=== PATIENT | female | born 1950 | race Caucasian/White ===

== ENCOUNTER 2019-11-28 13:53 | Observation (INO) | payer MEDICARE ==
--- NOTE | 2019-11-28 14:21 | ED ---
HPI Cardiac - HPI Summary HPI Summary: 69 year old F presenting to [facility] accompanied by EMS complains of an episode of lightheadedness, numbness and tingling in the left arm and leg, and left sided chest pressure earlier today 11/28/2019. The numbness and tingling in her arm and leg as well as the chest pressure have since resolved. There is some current left handed numbness. Patient reports the episode lasted half an hour. Patient denies chest pain currently. She took aspirin and blood pressure medication during the episode and was given NTG by EMS which she said helped. The patient rates the pain 0/10 in severity. Symptoms aggravated by nothing. Symptoms alleviated by NTG. No recent stress test. No prior LA. No hx DVT/PE. - History of Current Complaint Stated Complaint: CHEST PAIN PER EMS Time Seen by Provider: 11/28/19 14:05 Hx Obtained From: Patient Onset/Duration: Started Hours Ago, Resolved Pain Intensity: 0 Pain Scale Used: 0-10 Numeric Aggravating Factor(s): Nothing Alleviating Factor(s): NTG 123 Associated Signs and Symptoms: Positive: Numbness - in left hand currently. Numbness in left arm and lef have since resolved., Lightheadedness - resolved. Negative: Chest Pain - Chest pressure - Allergy/Home Medications Allergies/Adverse Reactions: Allergies Allergy/AdvReac Type Severity Reaction Status Date / Time No Known Allergies Allergy Unknown See Comment Verified 11/28/19 16:06 Home Medications: Home Medications Omeprazole CAP(NF) [PriLOSEC CAP(NF)] 10 mg PO DAILY PRN 11/28/19 [History Confirmed 11/28/19] PMH/Surg Hx/FS Hx/Imm Hx Cardiovascular History: Reports: Hx Angina Denies: Hx Myocardial Infarction Sensory History: Denies: Hx Legally Blind - Family History Known Family History: Positive: Cardiac Disease - mother had LA - Social History Hx Substance Use: No Hx Tobacco Use: No Review of Systems Negative: Chest Pain - chest pressure Neurological/Mental Status: Other - lightheadedness Positive: Numbness - in left hand. Numbness in left arm and leg since resolved. All Other Systems Reviewed And Are Negative: Yes Physical Exam - Summary Physical Exam Summary: Constitutional: Well-developed, Well-nourished, Alert. (-) Distressed Skin: Warm, Dry HENT: Normocephalic; Atraumatic Eyes: Conjunctiva normal Neck: Musculoskeletal ROM normal neck. (-) JVD, (-) Stridor, (-) Nuchal rigidity Cardio: Rhythm regular, rate normal, Heart sounds normal; Intact distal pulses; Radial pulses are 2+ and symmetric. (-) Murmur Pulmonary/Chest wall: Effort normal. (-) Respiratory distress, (-) Wheezes, (-) Rales Abd: Soft, (-) tenderness, (-) Distension, (-) Guarding, (-) Rebound Musculoskeletal: (-) Edema Lymph: (-) Cervical adenopathy Neuro: Alert, Oriented x3, SILT aside from L hand, strength 5/5 BUE/BLE. Psych: Mood and affect Normal Triage Information Reviewed: Yes Vital Signs Reviewed: Yes Procedures - Sedation Patient Received Moderate/Deep Sedation with Procedure: No Diagnostics - Laboratory Result Diagrams: 11/28/19 14:32 11/28/19 14:32 Lab Statement: Any lab studies that have been ordered have been reviewed, and results considered in the medical decision making process. - Radiology CXR Radiology Interpretation Completed By: Radiologist Summary of Radiographic Findings: IMPRESSION: No active cardiopulmonary disease is identified. No pneumothorax is noted. has reviewed this report. - EKG 1409 Cardiac Rate: NL EKG Rhythm: Sinus Rhythm Summary of EKG Findings: An EKG at 1409 reveals sinus rhythm at a rate of 95 BPM with T wave flattening in V3. ED physician has reviewed and interpretred this report. Disposition - Course Course Of Treatment: 69 y/o F w hx possible HLD p/w episode CP and paresthesias. Chest Pain DDX: The patient is well appearing, with stable vitals. No neuro symptoms at this time aside from mild L sided arm arm paresthesias. Given the patient's clinical presentation, highest on differential is atypical CP vs ACS. Initial troponin negative. Heart score 4: moderate risk. Admit to medicine for CP r/o. Although less likely, differential also includes the following: --Pneumothorax: Equal breath sounds, story inconsistent since gradual onset of symptoms. CXR shows no evidence of pneumothorax. Unlikely. --Cardiac tamponade: The history and physical are not concerning for tamponade. No Pulsus Paradoxus, no tachypnea. Unlikely. -- Mediastinitis or esophageal rupture: The history is not consistent, as the patient has had no recent history of significant wretching, instrumentation, or mediastinal surgeries. Unlikely. --Aortic dissection: The patient does not describe the classical tearing chest pain radiating into the back, and the CXR does not show mediastinal widening or other signs of aortic dissection. Unlikely. --PE: Vitals wnl (not hypoxic, tachycardic or tachypneic) - Diagnoses Provider Diagnoses: Chest pain - Physician Notifications Discussed Care Of Patient With: Sanjeev Jack - admit Time Discussed With Above Provider: 16:14 Instructed by Provider To: Admit As Inpatient Discharge ED - Sign-Out/Discharge Documenting (check all that apply): Patient Departure - admit - Discharge Plan Condition: Stable Disposition: ADMITTED TO [facility] - Billing Disposition and Condition Condition: STABLE Disposition: Admitted to [facility] - Attestation Statements Document Initiated by Rioe: Yes Documenting Scribe: Janes Manning Provider For Whom Bogdanibe is Documenting (Include Credential): Dr.Caelyn Walter Connell MD Scribe Attestation: Janes Mata scribed for Dr.Caelyn Walter Connell MD on 11/30/19 at 0720. Scribe Documentation Reviewed: Yes Provider Attestation: The documentation as recorded by the Janes borges accurately reflects the service I personally performed and the decisions made by me, Dr.Caelyn Walter Connell MD Status of Scribe Document: Viewed
[2019-11-28 14:40] LABS: ABS Basophils 0.1 10^3/ul (0-0.2); ABS Eosinophils 0.1 10^3/ul (0-0.6); ABS Lymphocytes 1.3 10^3/ul (1.0-4.8); ABS Monocytes 0.7 10^3/ul (0-0.8); ABS Neutrophils 4.2 10^3/ul (1.5-7.7); Eosinophil % 1.8 %; Hematocrit 40 % (35-47); Hemoglobin 14.1 g/dL (12.0-16.0); Lymphocyte % 20.1 %; Mean Corpuscular HGB Conc 36 g/dL (31-36); Mean Corpuscular Hemoglobin 32 pg (27-31); Mean Corpuscular Volume 91 fL (80-97); Mean Platelet Volume 8.5 fL (7.4-10.4); Nucleated Red Blood Cells % 0.1; Platelet Count 222 10^3/uL (150-450); Red Blood Count 4.37 10^6 /uL (3.70-4.87); Red Cell Distribution Width 13 % (10-15); White Blood Count 6.3 10^3/uL (3.5-10.8)
[2019-11-28 15:02] LABS: Albumin 3.9 g/dL (3.2-5.2); Albumin/Globulin Ratio 1.6 (1-3); Calcium 9.4 mg/dL (8.6-10.3); EGFR African American 104.1 (>60); Globulin 2.4 g/dL (2-4); Potassium 3.7 mmol/L (3.5-5.0); Total Bilirubin 0.4 mg/dL (0.2-1.0); Total Protein 6.3 g/dL (6.4-8.9)
[2019-11-28] MEDS ORDERED: Acetaminophen TAB* 325 MG PO PRN (17:54)
[2019-11-28] MEDS ORDERED: Enoxaparin(*) 40 MG/0.4 ML SYR SUBCUT SCH (18:00)
[2019-11-28] MEDS ORDERED: Acetaminophen TAB* 325 MG PO ONE (18:37)
[2019-11-28] MEDS ORDERED: Iohexol 350* (CONTRAST) 500 ML MDV IV ONE (19:31)
--- NOTE | 2019-11-28 20:25 | HP ---
ADMISSION HISTORY AND PHYSICAL: DATE OF ADMISSION: 11/28/19 PRIMARY CARE PROVIDER: Dr. Lott from [facility]. ADMITTING PHYSICIAN: Dr. Santiago * (being dictated by Pasquale Horowitz NP). CHIEF COMPLAINT: Extreme vertigo. HISTORY OF PRESENT ILLNESS: Ms. Mo is a 69-year-old female with past medical history significant for hypertension and obesity. She states that earlier this afternoon she had an "extreme episode of vertigo" while she was making lunch. She states that she felt extremely dizzy and then all of a sudden she had shooting numbness and tingling throughout her left arm and left leg, which quickly went away. Then the numbness and tingling started to come back and was not quite as intense. She was able to keep her balance, was able to keep doing what she was doing. She states that she went to go look in the mirror and did not notice any facial droop. She states that she called her son to come help her and does not report that he told her that her voice or speech sounded any different than usual. She states that she may or may not have had some mild left-sided chest tightness. She states that she did also feel some discomfort and again sounds like numbness and tingling to the left side of her neck as well as a mild headache that went away. While she was at home, she did take aspirin 325 mg and states that the discomfort and numbness and tingling may have subsided slightly, but she is not sure. She also took carvedilol 6.125 mg for which she has not had an actual prescription for, for the last couple of years per her report. They were left over in her purse and she took it because she was worried about her blood pressure. Denies any shortness of breath with this episode. Denies any other pain at this time. She states that she does get occasional numbness to her left hand and is complaining of this at this time and that it may be worse than usual, although she thinks it is in relation to the blood pressure cuff. While in the emergency department, she did not receive any medication. She did have some labs drawn, one of which being a troponin which was 0.00. She currently denies any fevers, chills, recent illness, chest pain, shortness of breath, nausea, vomiting, diarrhea, change in urination pattern or difficulty urinating, change in bowel pattern, swelling to her extremities. Denies any history of bleeding or clotting disorders. Hospital Medicine was asked to evaluate this patient for admission. PAST MEDICAL HISTORY: 1. Hypertension. 2. Obesity. PAST SURGICAL HISTORY: 1. Stapedectomy with steel implant 2. Tonsillectomy. HOME MEDICATIONS: Omeprazole 10 mg p.o. daily as needed. ALLERGIES: MOLD. No known drug allergies. FAMILY HISTORY: Mother with FL and hypertension. Father with diabetes mellitus. Sister with hypertension. Another sister with thyroid disease. SOCIAL HISTORY: She states that surrogate decision maker for her would be her daughter, Tila Baumann. Denies any history of tobacco use. States rare alcohol consumption. Denies any illicit drug use. She currently lives alone. 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 REVIEW OF SYSTEMS: A 12-point review of systems was completed with this patient. Please see HPI for pertinent positives and negatives. PHYSICAL EXAMINATION CONSTITUTIONAL: The patient is sitting up in bed, in no acute distress. VITAL SIGNS: Temp 98.1, pulse 96, respiratory rate 19, O2 sat 98%, BP 146/69. HEENT: PERRLA. EOMI. No scleral icterus. Mucous membranes moist. RESPIRATORY: Lung sounds clear throughout bilaterally. Normal respiratory effort. CARDIOVASCULAR: Heart rate regular. S1 and S2 present. No murmurs, rubs, or gallops noted. EXTREMITIES: No edema. Pedal pulses 2+ bilaterally. Telangiectasias to bilateral lower legs. GI: Abdomen large, normoactive bowel sounds throughout. Soft, nontender to palpation. MUSCULOSKELETAL: Strength and range of motion within normal limits to all extremities. NEUROLOGIC: Alert and oriented x3. Cranial nerves II through XII grossly intact. No arm drift. Able to move all extremities. Strength 5/5 to all extremities and equal. No difficulty with performing tasks. No facial palsy. Speech within normal limits. No abnormality of extinction or attention. PSYCH: Responds appropriately. Normal affect. SKIN: Appears dry and intact. DIAGNOSTIC STUDIES/LAB DATA: Chest x-ray, impression states no active cardiopulmonary diseases identified. No pneumothorax is noted. EKG shows sinus rhythm with rate of 95 beats per minute. T-wave flattening in leads III, aVF, and V1. ST depressions of approximately 1 mm in leads V5, V6, V3, V2. CBC is essentially benign with an MCH of 32. Chemistry: Sodium 137, potassium 3.7, BUN 17, creatinine 0.68, estimated GFR 86, BUN/creatinine ratio 25.0, glucose 105, calcium 9.4. Total bilirubin 0.40, AST 24, ALT 29, alk phosphatase 66. Total protein 6.3, albumin 3.9, globulin 2.4. Serial troponins show 0.00 at 1432 and 0.00 at 1809. ASSESSMENT AND PLAN: Ms. Mo is a 69-year-old female with past medical history significant for hypertension and obesity. She had an episode of significant left-sided numbness and tingling earlier today, which lasted for approximately 40 minutes. She complains of what she states may have been a mild left-sided chest discomfort at that time without any shortness of breath. 1. Left-sided numbness and tingling. This episode has resolved. She has not had any further episodes. Differential diagnosis at this time includes transient ischemic attack versus induction by stress. I have no concerns at this time for any sort of acute infection. MRI brain without contrast ordered. Lipid profile in the a.m., should calculate ASCVD with results of lipid profile. Start aspirin 81 mg daily. If the patient remains stable and has no further episodes, she may be able to have certain diagnostic testing such as the transthoracic echocardiogram and MRI done as outpatient if unable to be completed this evening. 2. Mild chest discomfort. The patient states this was left sided and was unsure whether she was or was not feeling this during her episode of left-sided numbness and tingling. Differentials include again effects of transient ischemic attack versus transient arrhythmia versus acute coronary syndrome versus angina pectoris. Troponins negative x2. Heart-healthy diet. Transthoracic echocardiogram ordered. Repeat EKG to assess for any ischemic changes or resolution. Telemetry monitoring. Start aspirin 81 mg daily. 3. History of hypertension. She is not currently being treated with any antihypertensive medications at this time. She has had mild elevations in blood pressure since arrival, however, this may very well be in relation to a "white coat syndrome" vs essential htn. We will continue to monitor. 4. FEN: Heart-healthy diet. 5. Code status: Full code. 6. DVT prophylaxis: Lovenox subcutaneously. STATUS: Stable. DISPOSITION: [address] [place] [address]. TIME SPENT: Approximately 65 minutes was spent on this admission with about half of that being [id number] with the patient for interview, exam, and reviewing plan of care. This plan has been discussed with my attending physician, Dr. Santiago, and he agrees with this plan. PASQUALE HOROWITZ NP [id number]/[facility] #: [id number] ADDENDUM: unable to perform MRI d/t implant r/t stapedectomy, CT brain and CTA head ordered. ADIN
[2019-11-29 06:31] LABS: HDL Cholesterol 46.5 mg/dL
[2019-11-29] MEDS ORDERED: Aspirin 81 mg CHEW TAB* 81 MG TAB.CHEW PO SCH (09:00)
--- NOTE | 2019-11-29 12:14 | PN ---
Subjective Date of Service: 11/29/19 Objective Active Medications: Acetaminophen (Tylenol Tab*) 650 mg PO Q4H PRN PRN Reason: PAIN - MILD Aspirin (Aspirin 81 Mg Chew Tab*) 81 mg PO DAILY [facility] Last Admin: 11/29/19 08:00 Dose: 81 mg Enoxaparin Sodium (Lovenox(*)) 40 mg SUBCUT Q24H [facility] Last Admin: 11/28/19 21:21 Dose: 40 mg Vital Signs - 8 hr 11/29/19 11/29/19 11/29/19 07:34 07:50 11:34 Temperature 97.8 F 97.5 F Pulse Rate 71 79 Respiratory 18 16 16 Rate Blood Pressure 131/66 137/77 (mmHg) O2 Sat by Pulse 98 99 Oximetry Oxygen Devices in Use Now: None Result Diagrams: 11/28/19 14:32 11/28/19 14:32 Assess/Plan/Problems-Billing Assessment: 69 yr old female with pmh of hypertension and obesity who presented to the ED with extreme vertigo - Patient Problems (1) Numbness and tingling Current Visit: Yes Status: Acute Code(s): R20.0 - ANESTHESIA OF SKIN; R20.2 - PARESTHESIA OF SKIN SNOMED Code(s): 446451920041 Comment: - Left arm and left leg (2) Dizziness Current Visit: Yes Status: Acute Code(s): R42 - DIZZINESS AND GIDDINESS SNOMED Code(s): 683988164 (3) Headache Current Visit: Yes Status: Acute Code(s): R51 - HEADACHE SNOMED Code(s): 41101613 (4) Hypertension Current Visit: Yes Status: Acute Code(s): I10 - ESSENTIAL (PRIMARY) HYPERTENSION SNOMED Code(s): 92481301 (5) Chest discomfort Current Visit: Yes Status: Acute Code(s): R07.89 - OTHER CHEST PAIN SNOMED Code(s): 210228729 (6) DVT prophylaxis Current Visit: Yes Status: Acute Code(s): Z29.9 - ENCOUNTER FOR PROPHYLACTIC MEASURES, UNSPECIFIED SNOMED Code(s): 678662740 (7) Full code status Current Visit: Yes Status: Acute Code(s): Z78.9 - OTHER SPECIFIED HEALTH STATUS SNOMED Code(s): 280478007
[2019-11-29 15:37] VITALS: BP 137/72
--- NOTE | 2019-11-29 22:35 | DS ---
CC: Dr. Lott from [facility]. * DISCHARGE SUMMARY: DATE OF ADMISSION: 11/28/19 DATE OF DISCHARGE: 11/29/19 PRIMARY CARE PROVIDER: Dr. Lott from [facility]. ATTENDING PHYSICIAN: Dr. Rivas * (dictated by Wilman Emmanuel NP). PRIMARY DIAGNOSES: 1. Left-sided numbness and tingling. 2. Dizziness. 3. Mild chest discomfort. 4. Hypertension. STUDIES WHILE IN THE HOSPITAL: 1. EKG: Sinus arrhythmia. 2. Chest x-ray: No active cardiopulmonary disease was identified. 3. Brain CT: No acute intracranial abnormality. 4. Head CTA: No acute findings. DISCHARGE HOME MEDICATIONS: Continued Home Medication: Omeprazole. No new, changed or discontinued home medications. HISTORY OF PRESENT ILLNESS/HOSPITAL COURSE: Ms. Mo is a 69-year-old female with past medical history significant for hypertension and obesity; who presented to the emergency department on 11/28/19 with complaints of vertigo. Please see history and physical dictated by Mrayse Pelayo NP for complete summary of the events leading up to the hospitalization, but in short, the patient had sudden onset of extreme dizziness, "extreme episode of vertigo" and left-sided numbness and tingling involving left arm and left leg, which lasted approximately 40 minutes. While in the emergency department, the patient had above-mentioned imaging, which was unremarkable. The patient had labs including a CBC and CMP, which were essentially benign. Given the patient's symptoms, she was admitted to the hospital on telemetry and for further evaluation and repeat troponins. While on telemetry, the patient remained in sinus rhythm. The patient had neuro checks which remained benign. The patient had repeat troponins, which were 0.00. The patient had repeat EKG, which showed no changes. The patient did not have return of symptoms. The patient remained symptom free. The patient had additional labs this morning including hemoglobin A1c which revealed a result of 5.5. The patient had fasting lipids, which were mildly elevated with triglycerides of 125, cholesterol 230, LDL 159, HDL 46.5. The patient is stable for discharge home. REVIEW OF SYSTEMS: A 14-point review of systems was completed and all were negative. PHYSICAL EXAM: General: Ms. Mo is sitting in bed. She appears to be in no acute distress. Appears her stated age. Vital Signs: Temp 97.1, HR 72, RR 16, O2 saturation 97% on room air, BP 137/72. HEENT: EOMs intact. PERRLA. Oral mucosa is moist without lesions. Posterior pharynx is clear. Neck: Supple. Respiratory: Symmetrical chest expansion. No accessory muscle use. Lungs: Clear to auscultation. No rhonchi, wheezes, or rubs. Cardiac: S1, S2 present. Regular rate and rhythm. No murmurs, rubs or gallops. Extremities: Skin is warm and smooth bilaterally. No edema. Pedal pulses are 2+ bilaterally. Musculoskeletal: Normal range of motion. No deformities. Abdomen: Soft, nontender to palpation. Bowel sounds normoactive. Neuro: Awake , alert and oriented x4. Cranial nerves II through XII are grossly intact. Moves all extremities. Motor strength is 5/5 in upper and lower extremities. Sensation: Intact. Coordination: Intact. No drift. Skin: Grossly intact without lesions. LABORATORY DATA: WBC 6.3, hemoglobin 14.1, hematocrit 40, platelets 222. Sodium 137, potassium 3.7, chloride 104, carbon dioxide 26, BUN 17, creatinine 0.68, glucose 105. Hemoglobin A1c 5.5. DISCHARGE PLAN/FOLLOWUP: 1. Left-sided numbness and tingling. The patient had a very short episode of left- sided numbness and tingling. It lasted about 40 minutes and resolved spontaneously. When discussing the symptoms with the patient, the patient reports that she had similar symptoms with low blood sugar. She reports that she drank a protein drink prior to EMS arrival; therefore, her symptoms could be associated with low blood sugar. Either way, the patient has had head and neck imaging with no acute findings. We wanted to get an MRI of the brain without contrast, but unfortunately, the patient has an implanted device and that makes it contraindicated. I have discussed and recommended followup with the patient including an echo with bubble and possibly a CT of brain if her primary care agrees. 2. Mild chest discomfort. The patient reports she is unsure if she actually had mild chest discomfort or if this is associated with the left-sided numbness and tingling. Either way, the patient has had negative troponins. She has no ectopy on tele. Her EKGs have been unremarkable. Once again, we recommend outpatient transthoracic echocardiogram with bubble study. 3. Hyperlipidemia. As mentioned in the HPI, the patient has mild hyperlipidemia. We discussed statin. The patient will discuss with her primary care provider. 4. Hypertension. The patient is not on antihypertensive medications, but carries a history as such. The patient's blood pressure has been stable. I will defer followup to her primary care provider. 5. Followup: The patient should follow up with her primary care provider in 1 to 3 days. The patient should have an echo with bubble study for completion of stroke/TIA workup. The patient could have a repeat CT of the brain as she is unable to have an MRI only if her PCP deems necessary. 6. Education: The patient was educated on signs and symptoms of new or worsening condition, when to return to the emergency department. The patient stated understanding. This is a summarized report of a complex medical history and hospital stay. For further details, please see entire medical record. TIME SPENT: Approximately 35 minutes was spent on discharge, greater than half that time was spent [id number] with the patient discussing discharge plans and instructions. This case has been discussed with my attending, Dr. Rivas, who is in agreement with my plan of care. WILMAN EMMANUEL, LENNY [id number]/[facility] #: [id number] ADIN
== END 2019-11-29 18:00 | disposition home or self-care (01) ==
LOC: ED 13:53 → MEDTELE 17:54
PROVIDERS: ADMIT Internal Medicine; ATTEND Internal Medicine
DX: R20.0 Anesthesia of skin (principal); R20.2 Paresthesia of skin; R42 Dizziness and giddiness; R07.89 Other chest pain; I10 Essential (primary) hypertension; E78.5 Hyperlipidemia, unspecified; E66.9 Obesity, unspecified; Z82.49 Family history of ischemic heart disease and other diseases of the circulatory system; Z79.899 Other long term (current) drug therapy
CPT/HCPCS: 36415; 70450; 70496; 70498; 71046; 80053; 80061; 83036; 84484; 85025; 87999; 93005; 96372; 99285; A9270-GY; G0378; J1650; Q9967

== ENCOUNTER 2020-08-14 17:33 | Observation (INO) ==
[2020-08-14 18:40] LABS: ABS Eosinophils 0.2 10^3/ul (0-0.6); ABS Lymphocytes 1.4 10^3/ul (1.0-4.8); ABS Monocytes 0.9 10^3/ul (0-0.8); ABS Neutrophils 5.3 10^3/ul (1.5-7.7); Eosinophil % 2.2 %; Hematocrit 44 % (35-47); Hemoglobin 14.9 g/dL (12.0-16.0); Lymphocyte % 17.7 %; Mean Corpuscular HGB Conc 34 g/dL (31-36); Mean Corpuscular Hemoglobin 31 pg (27-31); Mean Corpuscular Volume 91 fL (80-97); Mean Platelet Volume 8.9 fL (7.4-10.4); Platelet Count 222 10^3/uL (150-450); Red Blood Count 4.83 10^6 /uL (3.70-4.87); Red Cell Distribution Width 14 % (10-15); White Blood Count 7.8 10^3/uL (3.5-10.8)
[2020-08-14 18:43] LABS: INR 0.97 (0.82-1.09)
[2020-08-14 18:54] LABS: Albumin 4.4 g/dL (3.2-5.2); Albumin/Globulin Ratio 1.6 (1-3); BUN/Creatinine Ratio 34.4 (8-20); Calcium 9.5 mg/dL (8.6-10.3); EGFR African American 111.3 (>60); Globulin 2.7 g/dL (2-4); Total Bilirubin 0.3 mg/dL (0.2-1.0); Total Protein 7.1 g/dL (6.4-8.9)
[2020-08-14] MEDS ORDERED: Albuterol HFA INHALER 8 gm MDI INH PRN (21:47)
[2020-08-14 22:30] LABS: HDL Cholesterol 52.9 mg/dL
[2020-08-14] MEDS: Heparin 5000 UNITS/ML 1 mL VIAL SUBCUT SCH (23:20)
[2020-08-15] MEDS: Heparin 5000 UNITS/ML 1 mL VIAL SUBCUT SCH (06:08)
[2020-08-15 07:59] VITALS: BP 115/64
[2020-08-15] MEDS ORDERED: Enoxaparin 40 MG/0.4 ML SYR SUBCUT SCH (09:00)
[2020-08-15] MEDS ORDERED: Influenza VAC *QUAD* 2020-21* 0.5 ML SYRINGE IM ONE (09:00)
== END 2020-08-15 11:10 | disposition home or self-care (01) ==
LOC: MEDTELE 17:33 → ED 17:33 → MEDTELE 22:23
PROVIDERS: ADMIT Hospitalist; ATTEND Internal Medicine